=== PATIENT | female | born 1985 | race Asian ===

== ENCOUNTER 2021-11-16 18:41 | Inpatient (IN) | payer OTHER ==
[~2021-11-16] VITALS: Ht 152.4 cm; Wt 49.9 kg
--- NOTE | 2021-11-16 18:51 | NUR ---
TO ER BED 16, MARK C/O BODY RASH, ITCHING, CHEST TIGHTNESS, AND VOMITING SINCE THIS MORNING AFTER EATING RAW CRAB LAST NIGHT, AAOX3, CONNECTED TO MONITOR, AWAITING MD ORDERS
[2021-11-16] MEDS ORDERED: methylPREDNISolone SOD SUCC 125 MG/2ML VIAL ONE (18:57)
[2021-11-16] MEDS ORDERED: diphenhydrAMINE HCL 50 MG/ML VIAL ONE (18:57)
[2021-11-16] MEDS ORDERED: ONDANSETRON HCL/PF 4 MG/2 ML VIAL ONE (18:57)
[2021-11-16] MEDS ORDERED: FAMOTIDINE/PF INJ 20 MG/2 ML VIAL IV ONE ×2 (18:58→19:00)
[2021-11-16] MEDS ORDERED: methylPREDNISolone SOD SUCC 125 MG/2ML VIAL IV ONE (19:00)
[2021-11-16] MEDS ORDERED: diphenhydrAMINE HCL 50 MG/ML VIAL IV ONE (19:00)
[2021-11-16] MEDS ORDERED: ONDANSETRON HCL/PF 4 MG/2 ML VIAL IVP ONE (19:00)
--- NOTE | 2021-11-16 19:05 | NUR ---
PT ATTACHED TO MONITOR. IV LINE ESTABLISHED ON RAC#20 AND SALINE LOCKED.
[2021-11-16] MEDS ORDERED: IV NS 0.9% 1,000 ML BAG IV ONE (19:30)
--- NOTE | 2021-11-16 21:27 | NUR ---
PT AMBULATED TO BATHROOM, STEADY GAIT NOTED
[2021-11-16] MEDS ORDERED: KETOROLAC TROMETHAMINE INJ 30 MG/ML VIAL IV ONE (21:30)
[2021-11-16] MEDS ORDERED: EPINEPHRINE (1:1000) MDV 30 MG/30ML VIAL SUBCUT ONE (21:30)
[2021-11-16] MEDS ORDERED: EPINEPHRINE (1:1000) 1 MG/ML AMPUL ONE (21:31)
[2021-11-16] MEDS ORDERED: KETOROLAC TROMETHAMINE 15 MG/ML VIAL ONE (21:32)
[2021-11-16 21:46] LABS: BASOPHILS % (AUTO) 0.2 % (0.0-2.0); EOSINOPHILS % (AUTO) 0.1 % (0.0-6.0); HEMATOCRIT 43 % (33-45); HEMOGLOBIN 14.4 g/dL (11.5-14.8); LYMPHOCYTES % (AUTO) 3.6 % (20.0-44.0); MEAN CORPUSCULAR HGB CONC 34 g/dl (31.0-36.0); MEAN CORPUSCULAR VOLUME 94 fL (82-100); MONOCYTES % (AUTO) 1.8 % (2.0-12.0); NEUTROPHILS % (AUTO) 94.3 % (43.0-81.0); PLATELET COUNT (AUTO) 277 K/uL (150-450); RED BLOOD CELL COUNT(AUTO) 4.54 MIL/uL (4.0-5.2); WHITE BLOOD COUNT (AUTO) 11.7 K/uL (4.3-11.0)
[2021-11-16 21:47] LABS: LYMPHOCYTES # (AUTO) 0.4 K/uL (0.8-4.8); MONOCYTES # (AUTO) 0.2 K/uL (0.1-1.30)
--- NOTE | 2021-11-16 21:57 | NUR ---
URINE SAMPLE COLLECTED AND SENT TO LAB
[2021-11-16 21:58] LABS: BILIRUBIN,URINE SMALL (NEGATIVE); COLOR,URINE YELLOW (YELLOW); LEUKOCYTE ESTERASE ,URINE TRACE (NEGATIVE); NITRITE, URINE NEGATIVE (NEGATIVE); PROTEIN,URINE TRACE mg/dl (NEGATIVE); UGLUCOSE NEGATIVE (NEGATIVE)
[2021-11-16 22:11] LABS: CALCIUM, SERUM 8.7 mg/dL (8.5-10.1); CREATININE 0.6 mg/dL (0.6-1.3); POTASSIUM 3.6 mmol/L (3.5-5.1)
[2021-11-16 22:20] LABS: BACTERIA,URINE 1+ /HPF (None Seen); MUCUS,URINE Many /LPF (None Seen)
[2021-11-16 22:21] LABS: ALBUMIN 3.7 g/dL (3.4-5.0); BILIRUBIN,DIRECT 0.2 mg/dL (0.0-0.2); TOTAL PROTEIN, SERUM 7.2 g/dL (6.4-8.2)
[2021-11-16] MEDS ORDERED: DIPH25TA25 PO (23:43)
[2021-11-16] MEDS ORDERED: PRED20TA PO (23:43)
[2021-11-16] MEDS ORDERED: FAMO-131 PO (23:43)
--- NOTE | 2021-11-17 00:48 | NUR ---
PTS RASH HAS SUBSIDED, PT STATES "FEELS BETTER THAN EARLIER". WILL CONTINUE TO MONITOR,
[2021-11-17] MEDS ORDERED: diphenhydrAMINE HCL 50 MG/ML VIAL ONE ×2 (01:43→06:25)
[2021-11-17] MEDS ORDERED: diphenhydrAMINE HCL 50 MG/ML VIAL IV ONE ×2 (02:00→06:30)
[2021-11-17] MEDS ORDERED: EPINEPHRINE (1:1000) 1 MG/ML AMPUL ONE (04:52)
[2021-11-17] MEDS ORDERED: EPINEPHRINE (1:1000) MDV 30 MG/30ML VIAL IM ONE (05:00)
--- NOTE | 2021-11-17 05:06 | NUR ---
PROVIDED PT WITH CRACKERS AND WATER, WILL CONTINUE TO MONITOR
--- NOTE | 2021-11-17 05:45 | NUR ---
COVID ANTIGEN SWAB COLLECTED AND SENT TO LAB
--- NOTE | 2021-11-17 05:48 | NUR ---
EPIC PANEL PAGED
--- NOTE | 2021-11-17 06:22 | NUR ---
EPIC PANEL PAGED
--- NOTE | 2021-11-17 07:54 | NUR ---
room 117-1
[2021-11-17] MEDS ORDERED: NORE-213 PO (08:06)
[2021-11-17] MEDS ORDERED: VALA500T40 PO (08:06)
[2021-11-17] MEDS ORDERED: CETI10TA14 PO (08:06)
--- NOTE | 2021-11-17 08:56 | NUR ---
REPORT GIVEN TO GANESH FOR ANAHY
--- NOTE | 2021-11-17 09:06 | NUR ---
PT TRANSPORT TO [facility] WITH ACLS PROTOCOL IN PLACE. PT ABLE TO AMBULATE ON HER OWN TO BED.
[2021-11-17] MEDS: diphenhydrAMINE HCL 50 MG/ML VIAL IV SCH ×2 (09:31→16:30)
[2021-11-17] MEDS: methylPREDNISolone SOD SUCC 125 MG/2ML VIAL IV SCH ×2 (09:31→16:30)
[2021-11-17] MEDS: FAMOTIDINE/PF INJ 20 MG/2 ML VIAL IV SCH ×2 (09:31→16:30)
[2021-11-17] MEDS: NITROFURANTOIN/MONOHYDRATE MACROCRYSTALS 100 MG CAPSULE PO SCH ×2 (11:17→20:56)
[2021-11-17 12:00] VITALS: BP 94/51
[2021-11-17 16:20] VITALS: BP 91/51
--- NOTE | 2021-11-17 19:02 | NUR ---
JIG MAKER CLOSING NOTES PATIENT ALERT AND ORIENTED TIMES 4. NO PAIN NOTED. NO SOB NOTED. NO DISTRESS NOTED. ABLE TO MAKE NEEDS KNOWN. ON ROOM AIR TOLERATING WELL. ON TELE MONITOR READING SR. AMBULATORY ABLE TO USE RESTROOM WITHOUT ANY ISSUES. IV ACCESS ON THE RIGHT UPPER ARM INTACT. ALL DUE MEDS GIVEN ORDERED. ALL SAFETY MEASURES IN PLACE. CALL LIGHT AND TABLE IN EASY REACH. BED LOCKED IN THE LOWEST POSITION. SIDE RAILS UP TIMES 2. WILL ENDORSE FOR ANAHY.
[2021-11-17 20:00] VITALS: BP 94/55
[2021-11-18] VITALS: BP 92/53
[2021-11-18] MEDS: methylPREDNISolone SOD SUCC 125 MG/2ML VIAL IV SCH (00:49)
[2021-11-18] MEDS: diphenhydrAMINE HCL 50 MG/ML VIAL IV SCH (00:49)
[2021-11-18 04:00] VITALS: BP 92/58
--- NOTE | 2021-11-18 06:35 | NUR ---
RN CLOSING NOTES: PT SLEEPING IN BED BUT EASILY AROUSABLE, ALERT/ORIENTED X4 AND VERBALLY RESPONSIVE. NO SIGNIFICANT CHANGES THROUGHOUT THE SHIFT. ON ROOM AIR AND PT TOLERATED WELL. O2 SAT 96%IV ACCESS ON DEVONTE#20G INTACT AND PATENT. NO S/S OF INFILTRATIONS. NO C/O PAIN OR DISCOMFORT. NO ACUTE DISTRESS. CONTINENT ON BOWEL AND BLADDER. ABLE TO GO THE BATHROOM BY HERSELF. ALL DUE MEDS GIVEN ORDERED. ALL SAFETY MEASURES IN PLACE. BED IN LOWEST POSITION AND LOCKED. SIDE RAILS UP X2, PLACE CALL LIGHT WITH IN REACH. WILL ENDORSE TO MORNING SHIFT NURSE.
[2021-11-18 08:00] VITALS: BP 90/44
--- NOTE | 2021-11-18 08:00 | NUR ---
TRIMMER AND BORER MACHINE OPERATOR NOTE PATIENT IN BED , ALL NEEDS ATTENDED ,ALERT ORIENTED ,ON TELE MONITOR SB HR 57, ALL RASHES ON BODY SUBSIDEDING WELL , RT UPPER ARM HL INTACT AND FLUSHED WELL ,BED IN LOWEST AND LOCKED POSITION ,WILL CONT TO MONITOR CLOSELY
[2021-11-18] MEDS: FAMOTIDINE/PF INJ 20 MG/2 ML VIAL IV SCH (08:26)
[2021-11-18] MEDS: NITROFURANTOIN/MONOHYDRATE MACROCRYSTALS 100 MG CAPSULE PO SCH (08:26)
--- NOTE | 2021-11-18 10:30 | NUR ---
telecommunications network planner note rounds made ,all needs attended ,not in distress
[2021-11-18] MEDS ORDERED: NITR100C15 PO (11:21)
--- NOTE | 2021-11-18 11:40 | NUR ---
SPOOLING SUPERVISOR NOTE PATIENT WANTS TO GO HOME, CALLED TO SANDRA LILLY DNP STATED THAT WILL SEE PATIENT SOON ,PATIENT HAS SOME REDNESS AND SLIGHTLY SWOLLEN FACE , WILL NOTIFIED TO SANDRA ARGUELLO COME TO SEE PATIENT
[2021-11-18 12:00] VITALS: BP 92/52
--- NOTE | 2021-11-18 12:40 | NUR ---
TAMALE MAKER NOTE DNP SANDRA AT BEDSIDE AWARE THAT PATENT STILL HAS SOME REDNESS AND SLIGHTLY SWOLLEN FACE STATED STILL OK TO DISCHARGE
--- NOTE | 2021-11-18 12:41 | NUR ---
ART THERAPY SPECIALIST NOTE DISCHARGE INSTRUCTION GIVEN TO PATIENT UNDERSTANDS, TELE REMOVED AND HL R REMOVED, DRY DRESSING APPLIED ,NO BLEEDING NOTED , D\C INSTRUCTION GIVEN ,UNDERSTOOD, INSTRUCTED TO F\U WITH PRIMARY CARE DOCTOR ,AND TAKE NEW PX ORDERED, EXPLAINED TO TAKE AND POSSIBLE SIDE EFFECTS , BELONGING CHECKED AND SIGNED, TAKEN TO LOBBY BY WALKING WITH FRIEND AND NURSING STAFF, LEFT HOSPITAL WITH STABLE CONDITION
== END 2021-11-18 13:05 | disposition home or self-care (01) | DRG 916 ==
LOC: ER 18:46 → TELE-TD 11-17 08:16 → TELE1 11-18 08:41
PROVIDERS: ADMIT Internal Medicine; ATTEND Nurse Practitioner Acute Care
DX: T78.02XA Anaphylactic reaction due to shellfish (crustaceans), initial encounter (principal); N39.0 Urinary tract infection, site not specified; J45.909 Unspecified asthma, uncomplicated; Z79.899 Other long term (current) drug therapy; Z20.822 Contact with and (suspected) exposure to COVID-19; Z91.013 Allergy to seafood; L50.0 Allergic urticaria; B96.89 Other specified bacterial agents as the cause of diseases classified elsewhere
CPT/HCPCS: 36415; 80048-TC; 80076-TC; 81001; 83690-TC; 84703-TC; 85025-TC; C9803; G0378; J0171; J1200; J1885; J2405; J2930; J3490; J7030